=== PATIENT | female | born 1990 | race Caucasian/White ===

== ENCOUNTER 2025-06-14 08:20 | Emergency (ER) | payer OTHER, SELFPAY ==
[2025-06-14 08:39] VITALS: BP 143/100
--- NOTE | 2025-06-14 09:33 | ED.GENMED ---
History of Present Illness
General
Chief Complaint: Musculo-Skeletal Complaint
Source: patient
Exam Limitations: none
Time Seen by Provider: 06/14/25 09:19
History of Present Illness
History of Present Illness:
34-year-old female with 2 weeks of right shoulder pain. Feels a clicking in her shoulder. No trauma. Was severe initially then seem to getting better and now worse again the last 3 to 4 days. No fever chills no rash no chest pain or shortness of
breath. Patient is right-handed. 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 No other joint issues.
Past History
Past History
ED Past Medical History: None
Review of Systems
Review of Systems
All Other Systems: Not applicable
Constitutional: Denies fever or chills
Respiratory: Reports no symptoms
Cardiac: Reports no symptoms
Skin: Reports no symptoms
Phy Exam
Physical Exam
Physical Exam:
GENERAL: Alert and oriented in no apparent distress
EYE: Orbits normal.
NECK: Supple, nontender
CARDIAC: Regular rate and rhythm
LUNGS: No distress
NEUROLOGICAL: Alert and oriented , grossly non-focal
SKIN: Warm and dry, no rash or lesion, no discoloration, skin intact.
MUSCULOSKELETAL: No edema,no deformity.Good color. Patient somewhat self splinting the right shoulder. Able to abduct fully with some discomfort. No significant shoulder pain with flexion extension at the shoulder joint. Some pain however with
full abduction. No biceps tendon tenderness. No tenderness over the AC joint. No swelling warmth or erythema
PSYCH: Normal and appropriate interaction.
Course
Orders/Labs/Results
Orders:
Orders
06/14/25 08:42
Shoulder, Right, Trauma [CR Shoulder, Trauma - Right] Urgent
Comment:
Reason For Exam: pain
06/14/25 09:36
Sling Right-Treatment ONCE
Ketorolac [Toradol] 60 mg IM NOW STA
Prednisone [Deltasone] 30 mg PO NOW STA
Vital Signs
Initial and Last Documented VS:
Initial Vital Signs
Temp Pulse Resp BP Pulse Ox
98.3 F 72 15 143/100 100
06/14/25 08:39 06/14/25 08:39 06/14/25 08:39 06/14/25 08:39 06/14/25 08:39
Last Documented Vital Signs
Temp Pulse Resp BP Pulse Ox
98.3 F 72 15 143/100 100
06/14/25 08:39 06/14/25 08:39 06/14/25 08:39 06/14/25 08:39 06/14/25 09:36
MDM/Problems Addressed
Differential Diagnosis Includes:
Very musculoskeletal like right shoulder pain nothing to suspect other etiology. Has been going on for 2 weeks. Patient is clinically stable. Good distal pulses and color. No suspicion for vascular issue. I suspect this is an overuse issue.
Nothing to suspect a septic arthritis. Anti-inflammatories steroids sling with rotation exercises and orthopedic follow-up
*Radiology
Radiology exam reviewed: radiology read reviewed (Possible AC separation)
*Pulse Oximetry
SaO2: 100
Oxygen Mode of Delivery: Room air
Patient hypoxic: no
*Critical Care Note
Total Time (30-74mins, 75-104mins- exclusive of procedures): Not Applicable
ED Attending Note
-
Portions of this chart may have been created with voice recognition software.� Occasional wrong word or��sound alike� substitutions may have occurred due to the inherent limitations of voice recognition software.
Discharge Plan
Departure
Patient Disposition: Home (Routine Discharge)
Date of Disposition: 06/14/25
Time of Disposition: 09:37
Patient with high blood pressure during this ER visit?: Yes
Discharge Problem:
Right shoulder pain
Instructions: Shoulder pain - ED (DC), BLOOD PRESSURE
Prescriptions:
New
methylprednisolone [Medrol (René)] 4 mg tablets,dose pack
See Rx Instructions .ROUTE .COMPLEX Qty: 21 0RF
Rx Instructions:
for 6 days
Stand Alone Forms: Return to Work
Activity Restrictions/Additional Instructions:
Advil or Motrin for pain. You can also add Tylenol.
Medrol Dosepak as directed.
Make sure you take these medications with food they can both upset your stomach
Take the arm out of the sling 4-5 times a day as discussed
Call orthopedics Monday morning for close follow-up
Interventions
Interventions:
*Risk Screen - Suicide Last Done: 06/14/25 08:39
*Neglect/Abuse Screening Last Done: 06/14/25 08:39
*Nursing Disposition Last Done: 06/14/25 10:34
ED-Musculoskeletal Assessment Last Done: 06/14/25 09:01
Discharge Date and Time
Discharge Date/Time: 06/14/25 10:34
Print Language: PERSIAN
[2025-06-14] MEDS: DELTASONE 30 MG PO (10:08)
[2025-06-14] MEDS: TORADOL 60 MG IM (10:09)
== END 2025-06-14 10:34 | disposition home or self-care (01) ==
LOC: EMR 08:20
PROVIDERS: EMERGENCY PHYSICIAN Emergency Medicine; FAMILY PHYSICIAN Internal Medicine
DX: M25.511 Pain in right shoulder (principal)
CPT/HCPCS: 99283; 96372; 73030